=== PATIENT | female | born 1970 | race Asian ===

== ENCOUNTER → 2017-05-11 | Outpatient (CLI) | payer OTHER | LOC: CIMAGING 08:43 | PROVIDERS: ATTEND Family Medicine | DX: N63 Unspecified lump in breast (principal) | CPT/HCPCS: 76641-PO; G0202; G0206 ==

== ENCOUNTER → 2017-05-23 | Outpatient (CLI) | payer OTHER ==
[~2017-05-23] MED LIST: BUPIVACAINE 0.5% 10 ML SDV ONE; LIDO/EPI 1% **Not for Epidural 20 ML MDV ONE; LIDOCAINE 1% 300 MG/30 ML SDV ONE; THROMBIN (BOVINE) 5,000 UNIT VIAL TP ONE
== END ==
LOC: FIMAGING 07:20
PROVIDERS: ATTEND Family Medicine
PROC: 0HBU3ZX Excision of Left Breast, Percutaneous Approach, Diagnostic (ICD-10-PCS; principal; 2017-05-23)
DX: C50.912 Malignant neoplasm of unspecified site of left female breast (principal)
CPT/HCPCS: G0206

== ENCOUNTER → 2017-06-02 | Outpatient (CLI) | payer OTHER ==
[~2017-06-02] MED LIST changes: -BUPIVACAINE 0.5% 10 ML SDV ONE; +GADOBUTROL 10 ML VIAL IVP ONE; -LIDO/EPI 1% **Not for Epidural 20 ML MDV ONE; -LIDOCAINE 1% 300 MG/30 ML SDV ONE; -THROMBIN (BOVINE) 5,000 UNIT VIAL TP ONE
== END ==
LOC: FIMAGING 10:34
PROVIDERS: ATTEND Surgery
DX: C50.412 Malignant neoplasm of upper-outer quadrant of left female breast (principal)
CPT/HCPCS: 0159T; 76536; 77059; A9585; C8908

== ENCOUNTER → 2017-06-13 | Outpatient (CLI) | payer OTHER ==
[~2017-06-13] MED LIST changes: -GADOBUTROL 10 ML VIAL IVP ONE; +LIDOCAINE 1% 300 MG/30 ML SDV ONE
== END ==
LOC: FIMAGING 12:21
PROVIDERS: ATTEND Radiology Diagnostic Radiology
PROC: 07B13ZX Excision of Right Neck Lymphatic, Percutaneous Approach, Diagnostic (ICD-10-PCS; principal; 2017-06-13)
PROC: BW4FZZZ Ultrasonography of Neck (ICD-10-PCS; principal; 2017-06-13)
PROC: 07B23ZX Excision of Left Neck Lymphatic, Percutaneous Approach, Diagnostic (ICD-10-PCS; principal; 2017-06-13)
DX: R59.0 Localized enlarged lymph nodes (principal); Z85.3 Personal history of malignant neoplasm of breast

== ENCOUNTER 2017-07-01 07:22 | Day surgery (SDC) | payer OTHER ==
--- NOTE | 2017-06-30 21:43 | GHP ---
[f rep st] PREOP HISTORY AND PHYSICAL DATE OF ADMISSION: 07/01/2017 CHIEF COMPLAINT: Left breast invasive ductal carcinoma. HISTORY OF PRESENT ILLNESS: The patient is a 46-year-old woman who presented to our office with a new diagnosis of a left breast cancer. She had a screening mammogram on 05/11/2017, which showed architectural distortion which lead to both diagnostic mammogram and ultrasound. Ultrasound showed a suspicious lesion of the 10 o'clock position, 5 cm from the nipple, BI-RADS 4. She then had an ultrasound-guided biopsy on 05/23/2017, which revealed invasive ductal carcinoma, at least 1 cm in size, Branford grade 1, ER/MT positive and HER-2/adela negative. She is G2, P2. She was 13 years old at her 1st menstruation. She denies a personal or family history of breast cancer or other types of cancers. She had genetic testing performed which showed 2 variants of unknown significance. She had a breast MRI which was negative. PAST MEDICAL HISTORY: Breast cancer as above. PAST SURGICAL HISTORY: section x2. Left hemithyroidectomy. FAMILY HISTORY: Significant for thyroid disease. ALLERGIES: No known drug allergies. SOCIAL HISTORY: She is with 2 children. She denies tobacco, alcohol, or recreational drug use. REVIEW OF SYSTEMS: 10-point review of systems negative aside from the HPI. PHYSICAL EXAMINATION: GENERAL: Well-developed, well-nourished woman, in no acute distress, accompanied by . HEENT: Normocephalic, atraumatic. No hearing deficits. Pupils equal and round. No scleral icterus. Mucous membranes moist. NECK: Trachea midline. RESPIRATORY: Clear to auscultation bilaterally. No increased work of breathing. CARDIOVASCULAR: Regular rate and rhythm. No peripheral edema. LYMPH NODES: No supraclavicular, cervical, or axillary lymphadenopathy. BREASTS: Evidence of previous biopsy in left upper inner quadrant. No other palpable breast masses or skin changes. SKIN: Warm and dry. PSYCH: Mood and affect normal. NEURO: Grossly intact. IMPRESSION AND PLAN: A 46-year-old woman with a left breast invasive ductal carcinoma, ER/MT positive, HER-2/adela negative. We have recommended lumpectomy with sentinel lymph node biopsy. We discussed risks of surgery including, but not limited to, heart attack, stroke, blood clots or . We discussed risk of infection, bleeding, alteration and cosmesis, or need for additional procedures. She understands that if the sentinel lymph node is positive, that she may require an axillary dissection. She and her had their questions answered to their satisfaction. They understand the risks and would like to proceed. The patient was additionally seen by Dr. Felicia Villegas, who agrees with the above impression and plan. /[id number]/MODL MTDD
--- NOTE | 2017-07-01 07:17 | PDHPUP ---
History & Physical Update H&P update statement: This history and physical update is based on an assessment of the patient which was completed after admission or registration (within 24 hours), but prior to the surgery/procedure. H&P update: H&P reviewed & patient examined, no change in patient's condition since H&P completed
[2017-07-01] MEDS ORDERED: ceFAZolin 2 GM/DEXTROSE 100 ML IV ONE (07:26)
[2017-07-01] MEDS ORDERED: LR 1,000 ML IV ONE (07:27)
[2017-07-01] MEDS ORDERED: LIDOCAINE 1% 2 ML INJ ID PRN (07:27)
[2017-07-01] MEDS ORDERED: BUPIVACAINE 0.5% 30 ML SDV ONE (10:17)
[2017-07-01] MEDS ORDERED: LIDOCAINE 1% 300 MG/30 ML SDV ONE (10:17)
[2017-07-01] MEDS ORDERED: MIDAZOLAM 2 MG/2 ML VIAL IVP ONE (11:02)
--- NOTE | 2017-07-01 11:12 | PDANEPAE ---
ANE History of Present Illness DCIS s/f lumpectomy and SN BX ANE Past Medical History - Cardiovascular History Hx Hypertension: No Hx Arrhythmias: No Hx Chest Pain: No Hx Coronary Artery / Peripheral Vascular Disease: No Hx CHF / Valvular Disease: No Hx Palpitations: No - Pulmonary History Hx COPD: No Hx Asthma/Reactive Airway Disease: No Hx Recent Upper Respiratory Infection: No Hx Oxygen in Use at Home: No Hx Sleep Apnea: No Sleep Apnea Screening Result - Last Documented: Negative - Neurologic History Hx Cerebrovascular Accident: No Hx Seizures: No Hx Dementia: No - Endocrine History Hx Diabetes: No Hypothyroid: Yes Endocrine History Comment: s/p thyroidectomy - Renal History Hx Renal Disorders: No - Liver History Hx Hepatic Disorders: No - Neurological & Psychiatric Hx Hx Neurological and Psychiatric Disorders: Yes Neurological / Psychiatric History Comment: ANXIETY RELATED TO NEW DX BREAST CA - Cancer History Hx Cancer: Yes Cancer History Comment: NEW DX BREAST CA 06/2017 - Congenital Disorder History Hx Congenital Disorders: No - GI History Hx Gastrointestinal Disorders: Yes Gastrointestinal History Comment: RECENT STOMACH DISCOMFORT,GAS AND REGURITATION - Other Health History Other Health History: PAIN IN LT AXILLA. NECK NODULE. DIZZINESS. AREA ON FACE ? VIRUS INFECTION WAS TREATED WITH TOPICAL - Chronic Pain History Chronic Pain: Yes (LT AXILLA) - Surgical History Prior Surgeries: X2 ANE Review of Systems Review of Systems: - Exercise capacity METS (RN): 4 METS ANE Patient History - Allergies Allergies/Adverse Reactions: No Known Allergies Allergy (Unverified 05/12/17 12:43) - Home Medications Home medications: home medication list seen and reviewed Home Medications: Ferrous Sulfate DAILY 06/23/17 [Last Taken 06/24/17] Herbal Drugs DAILY 06/23/17 [Last Taken 06/24/17] TRETINOIN PRN 06/23/17 [Last Taken 06/24/17] - NPO status NPO Since - Liquids (Date): 06/30/17 NPO Since - Liquids (Time): 22:00 NPO Since - Solids (Date): 06/30/17 NPO Since - Solids (Time): 19:00 - Smoking Hx Smoking Status: Never smoked ANE Labs/Vital Signs - Vital Signs Blood Pressure: 111/77 Heart Rate: 64 Respiratory Rate: 16 O2 Sat (%): 96 Height: 170.18 cm Weight: 54.431 kg ANE Physical Exam - Airway Neck exam: FROM Mallampati Score: Class 1 Mouth exam: normal dental/mouth exam - Pulmonary Pulmonary: no respiratory distress - Cardiovascular Cardiovascular: regular rate and rhythym - ASA Status ASA Status: I ANE Anesthesia Plan Anesthesia Plan: GA w LMA (R/B/A explained and agrees to proceed)
[2017-07-01] MEDS ORDERED: MIDAZOLAM 2 MG/2 ML VIAL ONE (11:14)
[2017-07-01] MEDS ORDERED: PROPOFOL/EMULSION 500 MG/50 ML BOTTLE IV ONE (11:25)
[2017-07-01] MEDS ORDERED: fentaNYL 100 MCG/2 ML INJ ONE ×2 (11:25→12:55)
[2017-07-01] MEDS ORDERED: LIDOCAINE 2% 100 MG/5 ML SYR ONE ×2 (11:26)
[2017-07-01] MEDS ORDERED: LIDOCAINE 2% JELLY 5 ML TUBE ONE ×2 (11:28→11:29)
[2017-07-01] MEDS ORDERED: DEXAMETHASONE 4 MG/ML VIAL ONE (11:49)
[2017-07-01] MEDS ORDERED: ONDANSETRON 4 MG/2 ML VIAL ONE ×2 (11:49→13:37)
[2017-07-01] MEDS ORDERED: fentaNYL 100 MCG/2 ML INJ IVP PRN (12:14)
[2017-07-01] MEDS ORDERED: PROMETHAZINE HCL 25 MG/ML INJ IVP PRN (12:14)
[2017-07-01] MEDS ORDERED: LABETALOL HCL 50 MG/10 ML SYR IVP PRN (12:14)
[2017-07-01] MEDS ORDERED: LR 500 ML IV PRN (12:14)
[2017-07-01] MEDS ORDERED: HYDROCODONE/APAP 5/325 TAB PO PRN (12:14)
[2017-07-01] MEDS ORDERED: ONDANSETRON 4 MG/2 ML VIAL IVP PRN (12:14)
[2017-07-01] MEDS ORDERED: ACETAMINOPHEN 500 MG TAB PO PRN (12:14)
[2017-07-01] MEDS ORDERED: ALBUTEROL 3 ML DEYVIAL IH PRN (12:14)
[2017-07-01] MEDS ORDERED: METOCLOPRAMIDE 10 MG/2 ML VIAL IVP PRN (12:14)
[2017-07-01] MEDS ORDERED: NALOXONE HCL 0.4 MG/ML INJ IVP PRN (12:14)
[2017-07-01] MEDS ORDERED: DEXAMETHASONE 4 MG/ML VIAL IVP PRN (12:14)
[2017-07-01] MEDS ORDERED: MEPERIDINE 25 MG/ML SYR IVP PRN (12:14)
[2017-07-01] MEDS ORDERED: OXYCODONE/APAP 5/325 TAB PO PRN (12:14)
--- NOTE | 2017-07-01 12:15 | POSTOPPROG ---
Post Op Note Date of Operation: 07/01/17 Surgeon: Felicia Villegas Avionics System Engineer: susan Anesthesiologist: adrianne Anesthesia: GET(General Endotracheal) Pre-op Diagnosis: l invasive ductal Post-op Diagnosis: same Indication: 46 year old with invasive ductal carcinoma l breast Procedure: l lumpectomy and left sentinel lymph node Findings: clip in specimen, neg sln Inf/Abcess present in the surg proc area at time of surgery?: No EBL: Minimal Specimen(s): lump. sln, margins
[2017-07-01 13:14] VITALS: TEMP 97.3
--- NOTE | 2017-07-01 13:50 | GOP ---
[f rep st] OPERATIVE REPORT DATE OF OPERATION: 07/01/2017 SURGEON: Felicia Villegas MD SOFTWARE TEST DEVELOPER: Florencia Patiño, PALMER ANESTHESIA: General. ANESTHESIOLOGIST: Wolf Salmon MD PREOPERATIVE DIAGNOSIS: Left breast invasive ductal carcinoma. POSTOPERATIVE DIAGNOSIS: Left breast invasive ductal carcinoma. PROCEDURE PERFORMED: Left needle-localized lumpectomy with left sentinel lymph node. FINDINGS: Negative sentinel lymph node. Clip and wire contained within the specimen. SPECIMENS: Left lumpectomy, left sentinel lymph node, left additional margins. ESTIMATED BLOOD LOSS: 10 cc. INDICATIONS: The patient is a 46-year-old woman with a palpable breast mass which was diagnosed to be invasive ductal carcinoma. DESCRIPTION OF PROCEDURE: The patient was brought into the operating room, placed supine on the table, and general anesthesia was administered. Her left breast and axilla were prepped and draped in the usual sterile fashion. I infiltrated the area with 0.5% Marcaine mixed with 1% lidocaine. I made an ellipse around the wire. I made superior and inferior skin flaps, and I dissected down beyond the level of the wire. The specimen was inked green anterior, red superior, yellow medial, blue inferior, orange lateral, black posterior. This was submitted to Radiology and then to Pathology. The clip and mass were contained within the specimen. I made an incision beneath the hair-bearing portion of her left axilla. I dissected down through the subcutaneous space and broke into the axillary space. I used the gamma probe to identify the sentinel lymph node. I excised it, it measured 3300 ex Vivo and the background was less than 100. Hemostasis was achieved. I placed 3 titanium clips in the lumpectomy cavity to christiano the boundaries. Each wound was closed with 3-0 Vicryl followed by 4-0 Monocryl. Mastisol, Steri -Strips, and sterile dressing were applied. She was awakened in the operating room, extubated, transferred to PACU in stable condition. /[id number]/MODL MTDD
[2017-07-01 13:53] VITALS: PULSE 53; RESP 14
[2017-07-01 14:05] VITALS: BP 108/71; O2SAT 97
--- NOTE | 2017-07-01 14:22 | POSTANESTH ---
Post Anesthetic Evaluation Cardiovascular Status: Normal, Stable Respiratory Status: Normal, Stable Level of Consciousness/Mental Status: Can Participate in Eval Pain Control: Adequate, Prn Tx Ordered Nausea/Vomiting Control: Adequate, Prn Tx Ordered Complications Possibly Related to Anesthesia: None Noted
[2017-07-01] MEDS ORDERED: PROMETHAZINE HCL 25 MG TAB ONE (14:28)
[2017-07-01] MEDS ORDERED: PROMETHAZINE HCL 25 MG/ML INJ ONE (14:29)
== END 2017-07-01 14:50 | disposition home or self-care (01) ==
LOC: FSGY 07:22
PROVIDERS: ATTEND Surgery
DX: C50.212 Malignant neoplasm of upper-inner quadrant of left female breast (principal); Z17.0 Estrogen receptor positive status [ER+]
CPT/HCPCS: J0690; J1100; J2001; J2250; J2405; J2550; J2704; J3010

== ENCOUNTER → 2017-07-01 | Day surgery (SDC) | payer OTHER ==
[~2017-07-01] MED LIST changes: +LIDOCAINE 1% 2 ML INJ ONE
== END | disposition home or self-care (01) ==
LOC: FIMAGING 06:47
PROVIDERS: ATTEND Radiology Diagnostic Radiology
DX: C50.212 Malignant neoplasm of upper-inner quadrant of left female breast (principal); Z17.0 Estrogen receptor positive status [ER+]
CPT/HCPCS: 19285; 76098; 78195; A9520

== ENCOUNTER → 2017-07-13 | Outpatient (CLI) | payer OTHER | LOC: FIMAGING 12:14 | PROVIDERS: ATTEND Physician Assistant Surgical | DX: C50.912 Malignant neoplasm of unspecified site of left female breast (principal) ==

== ENCOUNTER → 2017-11-28 | Outpatient (CLI) | payer OTHER | LOC: CIMAGING 13:36 | PROVIDERS: ATTEND Family Medicine | DX: R07.81 Pleurodynia (principal); C50.912 Malignant neoplasm of unspecified site of left female breast | CPT/HCPCS: 71100-PO ==

== ENCOUNTER → 2018-05-22 | Outpatient (CLI) | payer OTHER | LOC: CIMAGING 12:52 | PROVIDERS: ATTEND Family Medicine | DX: N60.01 Solitary cyst of right breast (principal) | CPT/HCPCS: 76641-PO ==

== ENCOUNTER → 2018-10-13 | Outpatient (CLI) | payer OTHER | LOC: CIMAGING 11:40 | PROVIDERS: ATTEND Family Medicine | DX: M25.511 Pain in right shoulder (principal) | CPT/HCPCS: 73030-PO ==